=== PATIENT | female | born 1940 | race Caucasian/White ===

== ENCOUNTER 2024-06-11 05:36 | Day surgery (SDC) | payer OTHER ==
[2024-06-08 12:24] LABS: Absolute Basophils 0.1 K/uL (0-0.5); Absolute Eosinophils 0.1 K/uL (0-0.5); Absolute Lymphocytes (CBC) 1.3 K/uL (0.7-4.9); Absolute Monocytes 0.6 K/uL (0.1-1.3); Absolute Neutrophil 5.8 K/uL (1.8-8.0); Basophils % 0.8 % (0-1.3); Eosinophils % 1.8 % (0-4.4); Hematocrit 45.9 % (36.0-45.0); Hemoglobin 14.8 g/dL (12.0-15.0); Lymphocytes % 16.1 % (15.3-44.8); MCHC 32.4 g/dL (32.0-36.0); MPV 7.4 fL (7.6-11.3); Monocytes % 7.2 % (3.3-12.3); Neutrophils % 74.1 % (41.7-73.7); Platelets 336 thou/uL (152-406); RBC Red Blood Cell Count 4.63 M/uL (3.86-4.86); Red Cell Distribution Width 13.6 % (12.1-15.2)
[2024-06-08 12:28] LABS: PT Prothrombin Time 11.2 SECONDS (9.4-12.5); PTT, Activated Partial Thromb 34.9 SECONDS (24.3-36.9)
[2024-06-08 12:34] LABS: Anion Gap 8.2 mEq/L (5.0-15.0); Potassium 4.2 mEq/L (3.5-5.1)
[2024-06-11] MEDS: CLINDAMYCIN 600MG/D5W 50 ML IV ONE (06:12)
[2024-06-11] MEDS ORDERED: NA CHLORIDE 0.9% 0 ML ONE (06:31)
[2024-06-11] MEDS ORDERED: LIDOCAINE 1% MPF 5 ML VIAL ONE (06:33)
[2024-06-11] MEDS ORDERED: KETOROLAC 30 MG/ML INJ ONE (06:33)
[2024-06-11] MEDS ORDERED: ONDANSETRON 4 MG/2 ML VIAL ONE (06:33)
[2024-06-11] MEDS ORDERED: dexAMETHasone 4 MG/ML VIAL ONE (06:35)
[2024-06-11] MEDS ORDERED: BUPIVACAINE 0.5% PF 10 ML VIAL ONE (06:36)
[2024-06-11] MEDS ORDERED: propofoL 200 MG/20 ML VIAL IV ONE (06:45)
[2024-06-11] MEDS: Ringers Lactate 1,000 ML IV ONE ×2 (06:46→08:44)
[2024-06-11] MEDS ORDERED: FENTANYL CITR 100 MCG/2 ML ONE (06:46)
[2024-06-11] MEDS ORDERED: MIDAZOLAM HCL 2 MG/2 ML INJ ONE (06:46)
[2024-06-11] MEDS ORDERED: ROCURONIUM 50 MG/5 ML VIAL IV ONE (06:53)
[2024-06-11] MEDS ORDERED: LIDOCAINE 1% MPF 30 ML VIAL ONE (06:54)
[2024-06-11] MEDS ORDERED: SUCCINYLCHOLINE 20 MG/ML (10 ML) IV ONE (06:54)
[2024-06-11] MEDS ORDERED: Phenylephrine HCl 10 MG/ML 1 ML VIAL ONE (07:02)
[2024-06-11] MEDS ORDERED: ATROPINE SULF 1 MG/10 ML SYR IV ONE (07:46)
[2024-06-11] MEDS ORDERED: METOCLOPRAMIDE 10 MG/2mL INJ ONE (08:46)
[2024-06-11 09:55] VITALS: O2SAT 98
[2024-06-11 10:57] VITALS: BP 160/66; TEMP 97
--- NOTE | 2024-06-11 12:26 | RAD REPORT ---
EXAM: Fluoroscopy use, Foot Left 2 View HISTORY: [facility] MAIN BUNIONECTOMY,HAMMER TOE COMPARISON: None FINDINGS: A total of 13 images were sent to PACS, during a fluoroscopically guided left foot surgery. No radiologist was involved in protocoling or performance of the study, and no radiologist was present for the duration of the procedure. No interpretation of the saved images will be provided. Total fluoroscopy time: 0.2 minutes. IMPRESSION: Documentation of fluoroscopy use as above.
== END 2024-06-11 10:52 | disposition home or self-care (01) ==
LOC: OR 05:36
PROVIDERS: ATTEND Podiatrist Foot & Ankle Surgery
PROC: 0QSP04Z Reposition Left Metatarsal with Internal Fixation Device, Open Approach (ICD-10-PCS; 2024-06-11)
PROC: 0QSR04Z Reposition Left Toe Phalanx with Internal Fixation Device, Open Approach (ICD-10-PCS; 2024-06-11)
PROC: 0SGQ04Z Fusion of Left Toe Phalangeal Joint with Internal Fixation Device, Open Approach (ICD-10-PCS; principal; 2024-06-11 07:00)
DX: M20.12 Hallux valgus (acquired), left foot (principal); M20.42 Other hammer toe(s) (acquired), left foot; M20.5X2 Other deformities of toe(s) (acquired), left foot
CPT/HCPCS: 28285; 28299; 85025; 80048; 36415; 85610; 85730; 73620; 73721; J2704; J2765; J2003; J2371; J0461; J2250; J3010; J2405; J7120 ×2; J1100; J7030